=== PATIENT | male | born 1990 | race Caucasian/White ===

== ENCOUNTER 2023-09-29 12:23 | Emergency (ER) | payer OTHER, SELFPAY ==
--- NOTE | ~2023-09-29 | US_ITS ---
US scrotum doppler INDICATION: Testicular pain TECHNIQUE: Testicular sonogram utilizing grayscale and color Doppler FINDINGS: The testes are normal in size and appearance. No focal lesions are seen. The right testes measures 4.5 x 2.2 x 3.1 cm centimeters, and the left testis measures 4.4 x 2 x 2.6 cm cm. There is a small 2 mm complicated cyst at the superior aspect of the left testicle, likely benign. 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 There is normal vascular flow to both testes. The right and left epididymides appear normal. There is a left varicocele. IMPRESSION: 1. Small complicated cyst measuring 2 mm in the left testicle, likely benign. Recommend follow-up ul trasound in 3-6 months to assess stability. 2: Left varicocele. 3: No evidence for testicular torsion. 4: Testicular microlithiasis. Reviewed, dictated and finalized at location B. IMPRESSION: 1. Small complicated cyst measuring 2 mm in the left testicle, likely benign. Recommend follow-up ultrasound in 3-6 months to assess stability. 2: Left varicocele. 3: No evidence for testicular torsion. 4: Testicular microlithiasis.
[2023-09-29 12:25] VITALS: BP 132/85; PULSE 89; RESP 16; TEMP 36.5; O2SAT 100
--- NOTE | 2023-09-29 13:04 | ED.MALEGU ---
HPI - Male Genitourinary General Chief complaint: Urogenital-Male Stated complaint: testicle pain Time Seen by Provider: 09/29/23 13:00 History of Present Illness HPI Narrative: Patient is a 33-year-old male with history of hypertension here today with testicular pain. He states that his right testicle has been intermittently painful for the last 3-4 months. He went and establish with a new primary care doctor on September 24 and they ordered an outpatient ultrasound which is scheduled for this Friday. He notes that this morning the pain seemed to worsen and is now located in bilateral testicles and he feels as though someone kicked him in his scrotum. He notes that the pain radiates to bilateral hips and lower back. He denies any hematuria, dysuria, increased urinary frequency. Change in his pain with urination. The pain is mainly located in his posterior scrotum. He denies any trauma, denies any testicular or genital lesions. Denies any penile discharge. He denies any fever or chills. He notes he is in a monogamous relationship with his fiancee, they typically have unprotected intercourse. He denies concern for STI. No fever or chills. Related Data Home Medications Medication Instructions Recorded Confirmed losartan 100 mg tablet 100 mg PO DAILY 09/25/23 09/25/23 Allergies Allergy/AdvReac Type Severity Reaction Status Date / Time No Known Allergies Allergy Unverified 09/29/23 12:23 Review of Systems Review of Systems: All systems reviewed & are unremarkable except as noted in HPI and below PMFSH Past Medical History Medical History (Updated 09/29/23 @ 16:26 by Fanta Campoverde APRN) Anxiety HTN (hypertension) Kidney stones Family History Family History (Updated 09/25/23 @ 08:59 by Ondina Hogan MA) Father Heart disease Mother Hypertension Social History Social History (Updated 09/25/23 @ 09:01 by Ondina Hogan MA) Smoking status: Never smoker Alcohol intake: never Substance use type: does not use Do You Feel Safe in your Home?: Yes Lack of Transportation: No Lack of Food: Never True Current Housing: I Have Housing Concerned About Future Housing: No Difficulty Paying Gas/Electric Bills: No Difficulty Paying for Meds: No Currently Unemployed: No Education: High School Diploma/GED Difficulty w/ Childcare or Family Care: No Living arrangements: alone Additional occupation/education comments: [employer] Gender identity (if verbalized by the patient): Male Agree to blood products: Yes Exam Narrative: GENERAL: Well-appearing, well-nourished, and in no acute distress. HEAD: Normocephalic, atraumatic. EYES: PERRLA and EOMI. ENT: Nares clear. Mucous membranes moist. NECK: Supple. CHEST: Clear to auscultation. No respiratory distress. HEART: Regular rate and rhythm. Normal peripheral pulses. ABDOMEN: Soft, nontender, nondistended. 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 No overt swelling, masses or skin changes. No penile discharge. No genital lesions appreciated. No tenderness or fullness in the inguinal canal bilaterally. EXTREMITIES: Normal range of motion. No edema. SKIN: Warm, dry, no rash. NEURO: No focal deficits. Alert and oriented x3. PSYCH: Normal mood and affect. Course Course Emergency Course: Chart review performed. Patient here with testicular pain x1 month, scheduled for outpatient US on Friday, work up with worsening pain. One prior visit in our system from 09/25/23. They note history of testicular pain for 3-4 months in their note. History of anxiety, HTN, kidney stones. Patient seen evaluated, nontoxic appearing. Fairly unremarkable exam including a chaperoned testicular exam. Basic labs, STI panels, UA, testicular ultrasound been ordered. Will order tylenol for pain as patient has taken
[2023-09-29 13:45] LABS: Basophils Absolute Auto 0.1 K/mm3 (0.0-0.1); Basophils Percent Auto 0.8 % (0.2-1.2); Eosinophils Absolute Auto 0.1 K/mm3 (0-0.3); Eosinophils Percent Auto 1.5 % (0-4.4); Hematocrit 45.2 % (42.0-52.0); Hemoglobin 15.4 g/dL (14.0-18.0); Immature Granulocyte Absolute 0.16 K/mm3 (0.00-0.031); Immature Granulocyte Percent A 2.1 % (0-0.5); Lymphocytes Absolute Auto 1.54 K/mm3 (0.9-3.2); Lymphocytes Percent Auto 19.8 % (18.3-44.2); Mean Corpuscular HGB Conc 34.1 g/dl (32-36); Mean Corpuscular Hemoglobin 29.7 pg (26-34); Mean Corpuscular Volume 87.3 fl (80-100); Mean Platelet Volume 8.6 fl (7.4-10.4); Monocytes Absolute Auto 0.8 K/mm3 (0.1-0.6); Monocytes Percent Auto 9.6 % (2.6-8.5); Neutrophils Absolute Auto 5.2 K/mm3 (1.3-6.7); Neutrophils Percent Auto 66.2 % (45.5-73.1); Platelet Count Result 393 k/mm3 (150-375); Red Blood Count 5.18 M/mm3 (4.6-6.20); Red Cell Distribution Width 12.6 % (11.5-14.5); White Blood Count 7.8 K/mm3 (4.5-10.0)
[2023-09-29 13:47] LABS: Appearance Urine Clear (Clear); Bilirubin Urine Negative (Negative); Blood Urine Negative (Negative); Color Urine Yellow (Yellow); Glucose Urine UA Negative (Negative); Ketones Urine Negative (Negative); Leukocyte Esterase Ur Negative LEU/UL (Negative); Nitrate Urine Negative (Negative); Protein Urine Negative (Negative); Specific Grav Ur 1.016 (1.001-1.035)
[2023-09-29 13:51] LABS: Add Urine Microscopic? NO
[2023-09-29 13:55] LABS: Alanine Aminotransferase 31 U/L (6-50); Albumin Level 4.5 g/dL (3.5-5.1); Alkaline Phosphatase 97 U/L (38-126); Anion Gap 6 mmol/L (4-12); Aspartate Amino Transferase 26 U/L (17-59); Bilirubin,Total 0.6 mg/dL (0.2-1.3); Blood Urea Nitrogen 9 mg/dL (9-20); Calcium 8.9 mg/dL (8.4-10.2); Carbon Dioxide 28 mmol/L (22-30); Chloride 105 mmol/L (98-107); Estimated CRCL calculation 119 ml/min; Estimated Glomerular Filt Rate > 60; Glucose 114 mg/dL (65-110); Potassium 3.8 mmol/L (3.4-5.0); Sodium 139 mmol/L (137-145)
[2023-09-29] MEDS: ACETAMINOPHEN 325 MG TABLET 650 MG PO (14:42)
[2023-09-29 14:54] LABS: Trichomonas Vag PCR NOT DETECTED (NOT DETECTE)
[2023-09-29 15:16] LABS: Chlamydia trachomatis NOT DETECTED (NOT DETECTE); Neisseria gonorrhoeae PCR NOT DETECTED (NOT DETECTE)
[2023-09-29] MEDS: KETOROLAC 30 MG/ML VIAL (*BKC) 15 MG IM (16:23)
[2023-09-29 16:27] VITALS: BP 130/72; PULSE 74; RESP 16; O2SAT 100
== END 2023-09-29 16:28 | disposition home or self-care (01) ==
PROVIDERS: Emergency Provider Student in an Organized Health Care Education/Training Program; PCP Nurse Practitioner Adult Health
DX: N50.811 Right testicular pain (principal); N50.812 Left testicular pain; I10 Essential (primary) hypertension; Z87.442 Personal history of urinary calculi
CPT/HCPCS: 36415; 76870; 80053; 81003; 85025; 87491; 87591; 87661; 93976; 96372; 99283; 99284; A9270; J1885

== ENCOUNTER 2024-03-31 16:07 | Outpatient (CLI) | payer OTHER, SELFPAY ==
--- NOTE | ~2024-03-31 | XR_ITS ---
CORRECTED REPORT corrected order to XR foot LT standing min 3V JMG 04/01/24 This report was recreated on 04/01/24. Original report was RED ENTRANCE MONITOR Left foot Technique: AP, oblique, and lateral views were obtained. Clinical History: Pain Findings: No acute fracture or dislocation is seen. Osseous alignment is anatomic. Joint spaces are preserved without erosive or degenerative change. Soft tissues are unremarkable. Impression: Unremarkable left foot radiographs. Reviewed, dictated and finalized at location M. RED ENTRANCE MONITOR MTDD Impression: Unremarkable left foot radiographs.
== END 2024-03-31 16:08 | disposition home or self-care (01) ==
LOC: ANHBWCIMG 16:09
PROVIDERS: PCP Nurse Practitioner Adult Health; Visit Provider Nurse Practitioner Adult Health
DX: M79.672 Pain in left foot (principal)
CPT/HCPCS: 73630

== ENCOUNTER 2024-10-08 11:13 | Outpatient (CLI) | payer OTHER, SELFPAY ==
[2024-10-08 11:46] LABS: Basophils Absolute Auto 0.1 K/mm3 (0.0-0.1); Basophils Percent Auto 0.6 % (0.2-1.2); Eosinophils Absolute Auto 0.2 K/mm3 (0-0.3); Eosinophils Percent Auto 1.8 % (0-4.4); Hemoglobin 14.8 g/dL (14.0-18.0); Immature Granulocyte Absolute 0.17 K/mm3 (0.00-0.031); Immature Granulocyte Percent A 2.1 % (0-0.5); Lymphocytes Absolute Auto 1.31 K/mm3 (0.9-3.2); Lymphocytes Percent Auto 15.9 % (18.3-44.2); Mean Corpuscular HGB Conc 32.9 g/dl (32-36); Mean Corpuscular Hemoglobin 28.7 pg (26-34); Mean Corpuscular Volume 87.4 fl (80-100); Mean Platelet Volume 8.6 fl (7.4-10.4); Monocytes Absolute Auto 0.7 K/mm3 (0.1-0.6); Monocytes Percent Auto 8.9 % (2.6-8.5); Neutrophils Absolute Auto 5.8 K/mm3 (1.3-6.7); Neutrophils Percent Auto 70.7 % (45.5-73.1); Platelet Count Result 409 k/mm3 (150-375); Red Blood Count 5.15 M/mm3 (4.6-6.20); Red Cell Distribution Width 12.5 % (11.5-14.5); White Blood Count 8.2 K/mm3 (4.5-10.0)
[2024-10-08 11:56] LABS: Alanine Aminotransferase 27 U/L (6-50); Albumin Level 4.4 g/dL (3.5-5.1); Alkaline Phosphatase 106 U/L (38-126); Anion Gap 11 mmol/L (4-12); Aspartate Amino Transferase 27 U/L (17-59); Bilirubin,Total 0.5 mg/dL (0.2-1.3); Blood Urea Nitrogen 13 mg/dL (9-20); Calcium 9.2 mg/dL (8.4-10.2); Carbon Dioxide 26 mmol/L (22-30); Chloride 102 mmol/L (98-107); Cholesterol 229 mg/dL (0-200); Estimated Glomerular Filt Rate > 60; Glucose 125 mg/dL (65-110); HDL Direct 41 mg/dL; Magnesium 2.1 mg/dL (1.6-2.3); Potassium 4.4 mmol/L (3.4-5.0); Sodium 139 mmol/L (137-145); Triglycerides 139 mg/dL (<150)
[2024-10-08 12:07] LABS: LDL Cholesterol Direct 141 mg/dL
== END 2024-10-08 11:14 | disposition home or self-care (01) ==
LOC: ANHLAB 11:14
PROVIDERS: PCP Nurse Practitioner Adult Health; Visit Provider Nurse Practitioner Adult Health
DX: Z51.81 Encounter for therapeutic drug level monitoring (principal); Z79.899 Other long term (current) drug therapy; I10 Essential (primary) hypertension
CPT/HCPCS: 36415; 80053; 80061; 82607; 83735; 85025

== ENCOUNTER 2024-10-11 09:46 | Outpatient (CLI) | payer OTHER, SELFPAY ==
--- NOTE | 2024-10-11 10:08 | CONSULT_PTH ---
PATIENT: Néstor Elizabeth LOC: [facility] U#:[id number] AGE/SX: 34/M ROOM: RE10/11/[address]: Fanta Campoverde APRN : 1990 BED: DIS: 10/11/2024 SPEC #: [id number] RECD: 10/11/24 21:24 STATUS: NATALY REQ #: [id number] CHAN: 10/11/24 10:[address]: Fanta Campoverde DEPT: [facility] Consult RECD BY: Francis Mohr MLT, ([facility]) Procedures: Hematology Consult
[2024-10-11 20:05] LABS: Basophils Absolute Auto 0.1 K/mm3 (0.0-0.1); Basophils Percent Auto 0.5 % (0.2-1.2); Eosinophils Absolute Auto 0.1 K/mm3 (0-0.3); Eosinophils Percent Auto 1.3 % (0-4.4); Hematocrit 47.4 % (42.0-52.0); Hemoglobin 14.9 g/dL (14.0-18.0); Immature Granulocyte Absolute 0.32 K/mm3 (0.00-0.031); Immature Granulocyte Percent A 3.5 % (0-0.5); Lymphocytes Absolute Auto 1.65 K/mm3 (0.9-3.2); Lymphocytes Percent Auto 17.8 % (18.3-44.2); Mean Corpuscular HGB Conc 31.4 g/dl (32-36); Mean Corpuscular Hemoglobin 28.4 pg (26-34); Mean Corpuscular Volume 90.5 fl (80-100); Mean Platelet Volume 8.9 fl (7.4-10.4); Monocytes Absolute Auto 0.7 K/mm3 (0.1-0.6); Neutrophils Absolute Auto 6.4 K/mm3 (1.3-6.7); Neutrophils Percent Auto 68.9 % (45.5-73.1); Platelet Count Result 464 k/mm3 (150-375); Red Blood Count 5.24 M/mm3 (4.6-6.20); White Blood Count 9.3 K/mm3 (4.5-10.0)
== END 2024-10-11 09:47 | disposition home or self-care (01) ==
LOC: ANHBWCLAB 09:47
PROVIDERS: PCP Nurse Practitioner Adult Health; Visit Provider Nurse Practitioner Adult Health
DX: R79.89 Other specified abnormal findings of blood chemistry (principal)
CPT/HCPCS: 36415; 85025

== ENCOUNTER 2024-10-26 08:29 | Outpatient (CLI) | payer OTHER, SELFPAY ==
--- OUTSIDE RECORDS SUMMARY | 2024-10-26 08:34 | XMS_ITS | Clinical Summary ---
Author Organization [facility] [address] Address [address] [place] [address] Phone Care Team Providers Care Medical Staff Director Name Role Phone Miscellaneous, Not In File Primary Care Provider Unavailable Allergies No known active allergies Medications escitalopram (LEXAPRO) 20 mg tablet Take 1 tablet (20 mg total) by mouth daily 07/30/2022 Active losartan (COZAAR) 100 mg tablet TAKE 1 TABLET(100 MG) BY MOUTH DAILY 30 tablet 11 05/22/2023 Active cyclobenzaprine (FLEXERIL) 10 mg tablet Take 1 tablet (10 mg total) by mouth nightly 10 tablet 05/03/2024 Active ibuprofen (ADVIL,MOTRIN) 600 mg tablet Take 1 tablet (600 mg total) by mouth every 6 (six) hours as needed for pain 20 tablet 05/03/2024 Active Active Problems Problem Noted Date Diagnosed Date Skin lesion 06/21/2022 Assessment & Plan (06/21/2022 9:59 AM SAND CASTER APPRENTICE): Referred to Plastic surgery for excision. Anxiety disorder 06/18/2021 Overview (06/24/2023): Psychiatrist Dr Burgos, [facility] Dem[facility] Assessment & Plan (06/24/2023 9:00 AM SAND CASTER APPRENTICE): Well controlled on escitalopram 20 mg daily and should follow up with his psychiatrist as they direct. Assessment & Plan (06/18/2021 9:12 AM SAND CASTER APPRENTICE): Well controlled on generic Lexapro. IFG (impaired fasting glucose) 07/13/2020 Assessment & Plan (06/24/2023 9:00 AM SAND CASTER APPRENTICE): Check fasting blood sugar this morning and call back for results. Diet exercise discussed. Assessment & Plan (06/21/2022 9:58 AM SAND CASTER APPRENTICE): Check fasting blood sugar next week and call back for results. Assessment & Plan (06/18/2021 9:11 AM SAND CASTER APPRENTICE): Check labs this week and call back for results. Assessment & Plan (08/17/2020 8:44 AM CDT): Patient should reduce sugar and carbs, increase exercise, maintain proper body weight, and will check an A1c once or twice yearly. Assessment & Plan (07/13/2020 8:54 AM CDT): Patient should reduce sugar and carbs, increase exercise, maintain proper body weight, and will check an A1c once or twice yearly. Healthcare maintenance 06/15/2020 Assessment & Plan (06/24/2023 8:59 AM SAND CASTER APPRENTICE): Shot each January and COVID booster recommended. Tetanus booster due 2030. Diet exercise discussed. Will see him back in 1 year with labs sooner if needed. He will also have fasting labs done today and call back for results. Assessment & Plan (06/21/2022 9:59 AM SAND CASTER APPRENTICE): Flu shot each January. COVID booster discussed. Tetanus booster every 10 years. Diet exercise discussed. Check fasting labs next week and call back for results. Will see him back in 1 year sooner if needed. Assessment & Plan (06/18/2021 9:11 AM SAND CASTER APPRENTICE): Check fasting labs this week and call back for results. Flu shot each January. Recommended COVID booster shot in September. Tetanus booster every 10 years. Diet exercise discussed. Will see him back in 1 year for physical sooner if needed. Assessment & Plan (06/15/2020 9:02 AM SAND CASTER APPRENTICE): Tetanus booster today. Flu shot recommended but declined and is aware the risks this poses to his health. COVID vaccine recommended when available. Check fasting labs before next visit. Will see him back in 1 month sooner if needed. Essential hypertension 07/21/2015 Overview (06/15/2020): Lisinopril 10mg daily produced side effects but tolerated 5mg twice daily. Assessment & Plan (06/24/2023 8:59 AM SAND CASTER APPRENTICE): Blood pressure well controlled on losartan 100 mg daily. Assessment & Plan (06/21/2022 9:58 AM SAND CASTER APPRENTICE): Blood pressure well controlled on losartan. Assessment & Plan (06/18/2021 9:10 AM SAND CASTER APPRENTICE): Well controlled on the current regimen. Avoidance of salt, proper body weight, and routine exercise recommended. Assessment & Plan (08/17/2020 8:44 AM CDT): Continue losartan 50 mg daily for now. Try to avoid salt and increase exercise. Continue monitoring blood pressures and give me an update in 30 days and will plan on increasing his losartan to 100 mg at that time if his diastolic numbers do not improve. Assessment & Plan (07/13/2020 8:54 AM CDT): Start losartan 50 mg half tablet daily for 6 days then full tablet daily thereafter. Warned of possible side effects and call back if any develop. Check metabolic panel in 2 weeks and see him back in the office in 4 weeks for repeat evaluation. Continue checking blood pressure at home. Assessment & Plan (06/15/2020 9:01 AM SAND CASTER APPRENTICE): Check blood pressure at home record and bring to next visit. Start medication if indicated. Avoid salt and caffeinated products. Increase exercise. Assessment & Plan (07/03/2017 2:43 PM CDT): Home blood pressures are generally about 120/80. He checks them several times a week. Blood pressure in the office is somewhat borderline but with the home blood pressures where they are I think we can continue current therapy without change. Follow-up annually. Assessment & Plan (04/04/2017 4:11 PM SAND CASTER APPRENTICE): Blood pressures remain somewhat elevated, at least diastolic. Systolic is in a much better range. The patient's home blood pressures confirm the readings in the office. His pulse rate is a bit high. We will add a beta-monique and hopefully this will slow the heart down in lower the blood pressure a bit more. As before, the Korotkoff sounds are difficult to hear. I am confident of the systolic blood pressure but diastolic is very muffled and difficult to determine precisely. However I think with a lower heart rate, we may be achieve our goal, hence the beta-monique. Assessment & Plan (03/21/2017 5:06 PM SAND CASTER APPRENTICE): Blood pressures were pretty well controlled for awhile. He was checking with his home wrist cuff, but then he was getting an error message so he had a friend who is a nurse check with her cuff. The blood pressures were mildly elevated so he decided to come get it checked out. He was also concerned about some headaches he has been having which started about two weeks ago. Ten days ago, he had a recurrence of intermittent benign positional vertigo as well. He started taking [id number] meclizine which seems to be helping. However blood pressure and headaches persist. On exam, Korotkoff sounds are very difficult to hear, but there does appear to be mild or even moderate elevation of systolic and diastolic blood pressure. At home it has been primarily diastolic that is elevated, usually around 100 mm Hg. He denies chest pain and there is no swelling in his legs or other worrisome sign or symptom. Review of records shows that he had a CT of his kidneys in 2013 that showed symmetrical kidneys. He does have a history of kidney stones. There has been no recurrence of kidney stones symptoms. It looks like there is no renal artery Doppler. I also asked him about sleep apnea symptoms any has no history of snoring or daytime sleepiness or fatigue. He does get a little tired around noontime every day, but figures that is because he is up at 4:00 a.m. to work his shift at the [employer]. He gets off at 1:30 p.m. He does not otherwise have daytime fatigue or sleepiness. All of this is relevant because hypertension in a young person can sometimes be associated with obstructive sleep apnea. He has never had a sleep study. For now we will focus on treating the high blood pressure by increasing the lisinopril to 5 mg twice a day. We are splitting the dose rather than giving 10 mg once a day, because he had nausea with the higher dose taken once a day. With the reduced dose, blood pressure was controlled and he had no GI side effects. However with the elevation in blood pressure, we will increase the dose back to 10 mg but divided it morning in the evening. We will see him back in about two weeks to see how he is doing. History of kidney stones 09/19/2014 Assessment & Plan (06/15/2020 9:01 AM SAND CASTER APPRENTICE): Drink plenty of water and avoid caffeinated beverages salt and animal products. Check calcium level again before next visit. Tobacco dependence syndrome 09/19/2005 Overview (07/26/2016): Tobacco abuse Assessment & Plan (07/03/2017 2:44 PM CDT): He is still smoking. I encouraged him again to quit. Assessment & Plan (04/04/2017 4:09 PM SAND CASTER APPRENTICE): He is still smoking. He should try to quit. This would probably improve his blood pressure and his overall health status. Resolved Problems Problem Noted Date Diagnosed Date Resolved Date Benign paroxysmal positional vertigo due to bilateral vestibular disorder 03/10/2017 07/03/2017 Other headache syndrome 03/07/201706/19 Assessment & Plan (03/21/2017 5:09 PM SAND CASTER APPRENTICE): About the same time that his blood pressure was noted to be high, he started to experience headaches. He has had headaches off and on in the past. These are more persistent and rated from as low as 2/10 to as high as about 6/10 in severity. They are a sharp frontal pain. He has not been running a fever. Examination including funduscopic evaluation of optic discs is unremarkable. He has not had any response to ibuprofen taken [id number]. We will give him some tramadol to use over the next 1-2 weeks on an as needed basis. Hopefully controlling the headache pain will also improve his blood pressure. We will see him back for both issues within about two weeks. As with the elevated blood pressure, headaches might relate to obstructive sleep apnea (hypnic headache). Vertigo 05/20/2015 03/21/2017 Overview (07/26/2016): Vertigo Calculus of kidney 09/19/2014 9 Overview (07/26/2016): Kidney stone Assessment & Plan (07/03/2017 2:43 PM CDT): Since his last appointment, he passed another kidney stone. He did not have to go to the hospital. Continue to monitor. Acute streptococcal pharyngitis 05/24/2014 10/17/2016 Overview (07/26/2016): Streptococcal sore throat Immunizations Immunization Administration Dates Next Due DTP 09/07/1992, 0,1988,10/03,1988 Hep B, Adolescent or Pediatric 07/11/1998,1997,01/03/1998 HiB 10/30/1989 Influenza, Quadrivalent, Spl it, Preservative Free, Intramuscular 01/07/2018 Influenza, Unspecified 06/24/2023(Deferr ed: Patient Refused),06/21/2022(Deferred: Patient Refused),11/19/2021(Deferred: Patient Refused),06/18/2021(Deferred: Patient Refused),07/13/2020(Deferred: Patient Refused),06/15/2020(Deferred: Patient Refused) MMR 09/07/1992,10/30/1989 OPV 09/07/1992, 0,1988,10/03,1988 Td, adsorbed 06/15/2020,07/29/2002 Surgical History Surgery Date Site/Laterality Comments APPENDECTOMY Appendectomy Medical History Medical History Date Comments Vertigo 05/20/2015 Vertigo Benign paroxysmal positional vertigo due to bilateral vestibular disorder 03/10/2017 Other headache syndrome 03/07/2017 Calculus of kidney 09/19/2014 Kidney stone Hypertension Family History Medical History Relation Name Comments Nephrolithiasis Brother Coronary artery disease Maternal Grandmother shortly after CABG Hypertension Maternal Grandmother Hypertension Mother Hypertension; Nephrolithiasis Mother Kidney stone s; Seizures Mother Seizure disorde r; Relation Name Status Comments Brother Maternal Grandmother Mother Social History Tobacco Use Types Packs/Day Years Used Date Smoking Tobacco: Former Cigarettes 0.3 7 0 06/15/2011 - 06/15/2018 Smokeless Tobacco: Never Tobacco Cessation:Counseling Given: Not Answered Comments:Smoking History Packs/day: 2 Cigarettes Alcohol Use Standard Drinks/Week Comments No 0 (1 standard drink = 0.6 oz pur e alcohol) AUDIT-C Answer Date Recorded Q1: How often do you have a drink containing alcohol? Never 06/24/2023 Q2: How many drinks containi ng alcohol do you have on a typical day when you are drinking? Patient does not drink Q3: How often do you have si x or more drinks on one occasion? Never 06/24/2023 PHQ-2 Answer Date Recorded PHQ-2 Total Score (If total score is 3 or more points, staff should administer the PHQ-9) 0 06/24/2023 Personal Safety Answer Date Recorded Have you ever been in or are you currently in a harmful physical or emotional relationship or is someone making you feel afraid or unsafe? Denies 05/03/2024 Sex and Gender Information Value Date Recorded Sex Assigned at Not on file Legal Sex Male 3:33 AM SAND CASTER APPRENTICE Gender Identity Not on file Sexual Orientation Not on file Obstetrics History Last Filed Vital Signs Vital Sign Reading Time Taken Comments Blood Pressure 124/88 05/03/2024 12:42 PM SAND CASTER APPRENTICE Pulse 89 05/03/2024 12:42 PM SAND CASTER APPRENTICE Temperature 36.3 C (97.3 F) 05/03/2024 10:15 AM SAND CASTER APPRENTICE Respiratory Rate 16 05/03/2024 12:42 PM SAND CASTER APPRENTICE Oxygen Saturation 95% 05/03/2024 12:42 PM SAND CASTER APPRENTICE Inhaled Oxygen Concentration - - Weight 77.1 kg (170 lb) 05/03/2024 10:17 AM SAND CASTER APPRENTICE Height 169.5 cm (5' 6.73) 06/24/2023 8:18 AM CS T Body Mass Index 26.84 06/24/2023 8:18 AM SAND CASTER APPRENTICE Plan of Treatment Health Maintenance Due Date Last Done Comments Hepatitis C Screening 1990 Varicella Vaccines (1 of 2 - 13+ 2-dose series) 2001 Covid-19 Vaccine ( season) 2023 09/24/2020, 09/03/2020 Depression Screening 06/23/2024 06/24/2023, 06/21/2022, 06/18/2021, Additional history exists Regular Well Visit/Exam 18-64 06/23/2024 06/24/2023, 06/21/2022, 06/18/2021, Additional history exists Influenza Vaccine (#1) 2024 01/07/2018 DTaP/Tdap/Td Vaccine (6 - Tdap) 06/15/2030 06/15/2020, 07/29/2002, 09/07/1992, Additional history exists Postponed from 06/16/2020 (Provider's clinical decision) Hepatitis B Screening Completed 07/11/1998 , 02/07/1998, 01/03/1998 HPV Vaccines Aged Out No longer eligi ble based on patient's age to complete this topic Pneumococcal vaccine <65 Aged Out No longer eligible based on patient's age to complete this topic Insurance [employer] [facility] [employer]ENSATION GENERIC Care Teams Medical Staff Director Relationship Specialty Start Date End Date Miscellaneous, Not In File PCP - General 05/03/24
--- OUTSIDE RECORDS SUMMARY | 2024-10-26 08:34 | XMS_ITS | Clinical Summary ---
Author Organization [facility] Address [address] [place] [address] Phone Care Team Providers Care Blanket Maker Name Role Phone Provider, Unknown Primary Care Provider Unavaila ble Allergies No known active allergies Medications LISINOPRIL PO Take 0.5 mg by mouth 2 times daily. Active escitalopram (LEXAPRO) 20 MG Tablet Take 20 mg by mouth daily. Active losartan (COZAAR) 100 MG Tablet Take by mouth. 4 Active omeprazole (PriLOSEC) 40 MG CAPSULE DELAYED RELEASE Take 40 mg by mouth daily. 4 Active ondansetron (ZOFRAN-ODT) 4 MG TABLET DISPERSIBLEIndicatio ns:Viral gastroenteritis Take 1 Tablet by mouth every 8 hours as needed for Nausea - 1st line. 10 Tablet 4 Active Active Problems No known active problems Immunizations Immunization Administration Dates Next Due DTP Vaccine 09/07/1992, 0,1988,1988,1988 Hepatitis B Vaccine, Pediatric/adolescent 07/11/1998,02/07/1998,01/03/1998 Hib Vaccine,unspecified Formulation 10/30/1989 Influenza Vaccine, Quadrivalent, PF 01/07/2018 MMR Vaccine 09/07/1992,10/30/1989 OPV 09/07/1992, 0,1988,1988,1988 TD VACCINE 06/15/2020,07/29/2002 Social History Tobacco Use Types Packs/Day Years Used Date Smoking Tobacco: Never Smokeless Tobacco: Never Tobacco Cessation:Counseling Given: Not Answered Sex and Gender Information Value Date Recorded Sex Assigned at Not on file Legal Sex Male 11:19 PM CDT Gender Identity Not on file Sexual Orientation Not on file Last Filed Vital Signs Vital Sign Reading Time Taken Comments Blood Pressure 112/74 03/01/2024 8:23 AM CROSSING SUPERVISOR Pulse 101 03/01/2024 8:23 AM CROSSING SUPERVISOR Temperature 37.2 C (98.9 F) 03/01/2024 8:23 AM CROSSING SUPERVISOR Respiratory Rate 14 03/01/2024 8:23 AM CROSSING SUPERVISOR Oxygen Saturation 97% 03/01/2024 8:23 AM CROSSING SUPERVISOR Inhaled Oxygen Concentration - - Weight - - Height - - Body Mass Index - - Plan of Treatment Health Maintenance Due Date Last Done Comments Hepatitis C Virus (HCV) Screening 1990 Human Papillomavirus (HPV) Immunization (1 - Male 3-dose series) 2003 DTaP/Tdap/Td Immunization (6 - Tdap) 06/16/2020 06/15/2020, 07/29/2002, 09/07/1992, Additional history exists SARS-COV-2 Immunization ( season) 2023 09/24/2020, 09/03/2020 Influenza Immunization (#1) 2024 01/07/2018 Respiratory Syncytial Virus (RSV) Immunization (Adult) (1 - 1-dose 75+ series) 2063 Hepatitis B Immunization Completed 999, 02/07/1998, 01/03/1998 Meningococcal Immunization (ACWY) Aged Out No longer eligible based on patient's age to complete this topic Pneumococcal Immunization Combined Aged Out No longer eligible based on patient's age to complete this topic Rotavirus Immunization Aged Out No lo nger eligible based on patient's age to complete this topic Care Teams Blanket Maker Relationship Specialty Start Date End Date Provider, Unknown UNKNOWN PCP - General 12/23/19
--- OUTSIDE RECORDS SUMMARY | 2024-10-26 08:34 | XMS_ITS | Referral Summary ---
Author Organization [facility] [address] Address [address] [place] [address] Phone Care Team Providers Care Aerospace Manager Name Role Phone Miscellaneous, Not In File [...] 06/21/2022 Assessment & Plan (06/21/2022 9:59 AM STRUCTURAL STEEL DETAILER): Referred to Plastic surgery for excision. Anxiety disorder 06/18/2021 Overview (06/24/2023): Psychiatrist Dr Burgos, Doctor on Demand Assessment & Plan (06/24/2023 9:00 AM STRUCTURAL STEEL DETAILER): Well controlled on escitalopram 20 mg daily and should follow up with his psychiatrist as they direct. Assessment & Plan (06/18/2021 9:12 AM STRUCTURAL STEEL DETAILER): Well controlled on generic Lexapro. IFG (impaired fasting glucose) 07/13/2020 Assessment & Plan (06/24/2023 9:00 AM STRUCTURAL STEEL DETAILER): Check fasting blood sugar this morning and call back for results. Diet exercise discussed. Assessment & Plan (06/21/2022 9:58 AM STRUCTURAL STEEL DETAILER): Check fasting blood sugar next week and call back for results. Assessment & Plan (06/18/2021 9:11 AM STRUCTURAL STEEL DETAILER): Check labs this week and call back [...] 06/15/2020 Assessment & Plan (06/24/2023 8:59 AM STRUCTURAL STEEL DETAILER): Shot each January and COVID booster recommended. Tetanus booster due 2030. Diet exercise discussed. Will see him back in 1 year with labs sooner if needed. He will also have fasting labs done today and call back for results. Assessment & Plan (06/21/2022 9:59 AM STRUCTURAL STEEL DETAILER): Flu shot each January. COVID booster discussed. Tetanus booster every 10 years. Diet exercise discussed. Check fasting labs next week and call back for results. Will see him back in 1 year sooner if needed. Assessment & Plan (06/18/2021 9:11 AM STRUCTURAL STEEL DETAILER): Check fasting labs this week and call back for results. Flu shot each January. Recommended COVID booster shot in September. Tetanus booster every 10 years. Diet exercise discussed. Will see him back in 1 year for physical sooner if needed. Assessment & Plan (06/15/2020 9:02 AM STRUCTURAL STEEL DETAILER): Tetanus booster today. Flu shot recommended but declined and is aware the risks this poses to his health. COVID vaccine recommended when available. Check fasting labs before next visit. Will see him back in 1 month sooner if needed. Essential hypertension 07/21/2015 Overview (06/15/2020): Lisinopril 10mg daily produced side effects but tolerated 5mg twice daily. Assessment & Plan (06/24/2023 8:59 AM STRUCTURAL STEEL DETAILER): Blood pressure well controlled on losartan 100 mg daily. Assessment & Plan (06/21/2022 9:58 AM STRUCTURAL STEEL DETAILER): Blood pressure well controlled on losartan. Assessment & Plan (06/18/2021 9:10 AM STRUCTURAL STEEL DETAILER): Well controlled on the current regimen. Avoidance [...] home. Assessment & Plan (06/15/2020 9:01 AM STRUCTURAL STEEL DETAILER): Check blood pressure at home record and [...] annually. Assessment & Plan (04/04/2017 4:11 PM STRUCTURAL STEEL DETAILER): Blood pressures remain somewhat elevated, at least [...] beta-monique. Assessment & Plan (03/21/2017 5:06 PM STRUCTURAL STEEL DETAILER): Blood pressures were pretty well controlled for [...] positional vertigo as well. He started taking [id number] meclizine which seems to be helping. However [...] a.m. to work his shift at the [employer]. He gets off at 1:30 p.m. He [...] 09/19/2014 Assessment & Plan (06/15/2020 9:01 AM STRUCTURAL STEEL DETAILER): Drink plenty of water and avoid caffeinated beverages salt and animal products. Check calcium level again before next visit. Tobacco dependence syndrome 09/19/2005 Overview (07/26/2016): Tobacco abuse Assessment & Plan (07/03/2017 2:44 PM CDT): He is still smoking. I encouraged him again to quit. Assessment & Plan (04/04/2017 4:09 PM STRUCTURAL STEEL DETAILER): He is still smoking. He should try to quit. This would probably improve his blood pressure and his overall health status. Resolved Problems Problem Noted Date Diagnosed Date Resolved Date Benign paroxysmal positional vertigo due to bilateral vestibular disorder 03/10/2017 07/03/2017 Other headache syndrome 03/07/201706/19 Assessment & Plan (03/21/2017 5:09 PM STRUCTURAL STEEL DETAILER): About the same time that his blood [...] not had any response to ibuprofen taken [id number]. We will give him some tramadol to [...] 09/07/1992,10/30/1989 OPV 09/07/1992, 0,1988,10/03,1988 Td, adsorbed 06/15/2020,07/29/2002 Social History Tobacco Use Types Packs/Day [...] on file Legal Sex Male 3:33 AM STRUCTURAL STEEL DETAILER Gender Identity Not on file Sexual Orientation Not on file Last Filed Vital Signs Vital Sign Reading Time Taken Comments Blood Pressure 124/88 05/03/2024 12:42 PM STRUCTURAL STEEL DETAILER Pulse 89 05/03/2024 12:42 PM STRUCTURAL STEEL DETAILER Temperature 36.3 C (97.3 F) 05/03/2024 10:15 AM STRUCTURAL STEEL DETAILER Respiratory Rate 16 05/03/2024 12:42 PM STRUCTURAL STEEL DETAILER Oxygen Saturation 95% 05/03/2024 12:42 PM STRUCTURAL STEEL DETAILER Inhaled Oxygen Concentration - - Weight 77.1 kg (170 lb) 05/03/2024 10:17 AM STRUCTURAL STEEL DETAILER Height 169.5 cm (5' 6.73) 06/24/2023 8:18 AM CS T Body Mass Index 26.84 06/24/2023 8:18 AM STRUCTURAL STEEL DETAILER Plan of Treatment Not on file Insurance [place] [employer] ACCESS [place] [employer] ACCESS OOS R [facility]/PPO Address: [address] [address] WORK[employer] COMPENSATION GENERIC Care Teams Aerospace Manager Relationship Specialty Start Date End Date Miscellaneous, Not In File PCP - General 05/03/24
--- OUTSIDE RECORDS SUMMARY | 2024-10-26 08:34 | XMS_ITS | Continuity of Care Document ---
Author Organization [facility] Address [address] [place] [address] Phone Care Team Providers Care Ross Lift Operator Name Role Phone Saloni Salazar PA-C Unavailable Unavailable Allergies, Adverse Reactions, Alerts Substance Reaction Status Criticality No Known Allergies Active No Inform ation Medications Medication Instructions Dosage Effective Dates (start - stop) Status Comments diclofenac sodium 50 mg tablet,delayed release take 1 tablet by oral route 2 times every day 50 MG - Active Procedures Procedure Date URINALYSIS NONAUTO W/O SCOPE OFFICE/OUTPATIENT VISIT, EST Advance Directives Directive Yes / No Effective Date File Name No Information Encounters Encounter Description Practice Location Reason(s) For Visit Diagnoses Date Provider Providers Copied on Encounter [facility], [address] [place] [address], [facility], [phone] [place] No Information Marie Guallpa. [address] [place] [address], [facility], . [phone] OFFICE/OUTPA TIENT VISIT, [facility], [address] [place] [address], tel:[phone] [place] PAIN IN LT SIDE (chief complaint) Urinary frequencyBack pain Sep-0 4201 4 No Information Family History Family Member Type Diagnosis Age At Onset Mother Problem (finding) renal stone Payers Payer name Insurance type Covered libertarian ID Authoriza tion(s) Blue Cross Blue [facility] CI [id number] Social History Type Description Quantity Date Captured Comments Alcohol Use Details Unknown Caffeine Use Details Unknown Tobacco Use Status Smoking Status No Information Sex Male Chief Complaint And Reason For Visit No Information Reason For Referral Reason For Referral No Information Plan Of Treatment Date Type Action Status Referral Ordered: referred to Urology for consultation Today (related to Back pain) ordered Referral Ordered: referred to Nephrology for consultation Today (related to Back pain) ordered Referral Ordered: CT ABDOMEN W/O DYE ordered History Of Present Illness Encounter Date Complaint History Of Prese nt Illness PAIN IN LT SIDE The symptoms beg an 3 weeks ago. The symptoms are reported as being moderate. The symptoms occur constantly. The location is left side/flank. He states the symptoms are acute and have worsened. States has had the pain in the left side/flank for the last 2 1/2 to 3 weeks, states it would come and go, states now pain is persistant and the worst in the mornings, states the pain caused him to have emesis this morning, states its appearance was like yellowish water. States bowels have been normal until today, states has had loose stools 4 times today. Rates pain 10/10 this morning, and states its 4/10 now. States its like someone taking their fist and jabbing it in his back. States his urine in dark in color, sometimes it orellana and he is going more frequently. Functional Status Date Functional Assessmen t No Information Instructions Date Instruction Additional Infor mation left back pain radia tion to to groin. ct abdomen/pelvis showed multiple kidney stone. renal cyst as well. Will refer pt to urology and nephrology for further mangement. Advised pt to continue taking water and pain medications. Related to Back pain Assessments Type Assessment Date No Information Patient Care Teams Name Effective Dates (start - stop) Status Members No Information
[2024-11-02 11:19] VITALS: BMI 29.0
--- NOTE | 2024-11-02 11:19 | P.SLEEP_ITS ---
Sleep Study - Home Unattended Date of Study: 10/26/24 Ordering Provider: Fanta Campoverde APRN Interpreting Provider: Michelle Miner DO Home Sleep Study Type: Watch PAT Height: 1.7 m Weight: 83.915 kg Body Mass Index: 29.0 Neck Circumference (inches): 17 [place]: 7 Reason for Sleep Study snoring, daytime hypersomnia Sleep History The patient is a 34-year-old male who had a sleep study ordered by his primary care for evaluation of sleep apnea. He admits to snoring loudly, excessive daytime sleepiness, and trouble falling and staying asleep. He denies interruptions in breathing while asleep. He denies choking or gasping at night. He denies having trouble breathing on his back. He does have morning headaches and a dry or sore mouth/throat in the morning. He does have nocturnal heartburn. He urinates twice throughout the night. He does have difficulty returning to sleep if he wakes up throughout the night. He does use hypnotics or sedatives. He does feel anxious about sleep. He does feel tired or sleepy during the day and tired in the morning. He denies having the urge to fall asleep during the day. He denies feeling drowsy while driving. He denies sleep paralysis, cataplexy, and hypnagogic/hypnopompic hallucinations. He denies clenching or grinding his teeth. He denies kicking or jerking his legs excessively. He does have a restless feeling in his legs that causes an urge to move his legs. The restless feeling does not get worse with rest, but it does get better with activity. It only occurs in the evening or at nighttime and does not cause a disturbance in sleep. He goes to bed at 9 p.m. on workdays and at 11 p.m. on his days off. It takes him 1 hour to fall asleep on his workdays and 2 hours on his days off. He gets 9 hours of sleep on workdays and 8 hours on his days off. His sleep is a little more restorative on his days off. He denies taking any planned naps. He denies dream enactment behavior. He denies sleepwalking. He consumes 1 to 2 cups of a caffeinated beverage per day. He denies alcohol and tobacco use. He denies exercising on a weekly basis. [facility] Past Medical History Medical History Kidney stones HTN (hypertension) Anxiety Family History Family History Father Heart disease Mother Hypertension Social History Social History Smoking status: Never smoker Alcohol intake: never Substance use type: does not use Do You Feel Safe in your Home?: Yes Lack of Transportation: No Lack of Food: Never True Current Housing: I Have Housing Concerned About Future Housing: No Difficulty Paying Gas/Electric Bills: No Difficulty Paying for Meds: No Currently Unemployed: No Education: High School Diploma/GED Difficulty w/ Childcare or Family Care: No Living arrangements: alone 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 [employer] Gender identity (if verbalized by the patient): Male Agree to blood products: Yes Medications Home Medications ?Medication ?Instructions ?Recorded ?Confirmed ?Type losartan 100 mg tablet 100 mg PO DAILY #90 tabs 04/27/24 10/05/24 Rx escitalopram oxalate 20 mg tablet See Rx Instructions .Route 09/28/24 10/05/24 Rx .COMPLEX #90 tabs omeprazole 40 mg capsule,delayed See Rx Instructions .Route 10/26/24 Rx release .COMPLEX #90 caps Sleep Procedure The sleep study was completed using [employer]ez[employer]ger a technically adequate device with seven channels: peripheral arterial tone, actigraphy, body position, snore, respiratory movement, pulse oximetry, sleep staging, and heart rate. Prior to using the device, the patient received verbal and written instructions for its application and was provided with the help desk phone number for additional telephonic instruction with 24-hour availability of qualified personnel to answer questions. The study was scored using CMS guidelines. Sleep Architecture The total recording time is 8 hrs, 56 min. The total sleep time is 7 hrs, 14 min. Sleep latency is 17 minutes. REM latency is 234 minutes. The patient had 29 episodes of waking. Sleep architecture shows 10.4% deep sleep, 67.6% light sleep, and (as % Total Sleep Time) showed NREM (Light 67.6%; Deep 10.4%), and a 22.0% stage REM. The patient spent 81.3% of total sleep time in the supine position. Sleep efficiency was 80.97. Respiratory Analysis The overall AHI (pAHI 4%:) is 46.1. The overall AHI (pAHI 3%:) is 65.9. The central AHI is 0.0. The AHI was 66.7 in NREM and 63.3 in REM sleep. The AHI was 71.1 in Supine and 43.2 in Non-supine sleep. Percent of Teto [place] respirations is 0.0. Oximetry Data The oxygen desaturation index (SHAHEED 4%:) is 46.1. The mean saturation is 93%, and the lowest saturation is 73%. Time spent with saturation < 88% is 25.1 minutes. Snoring Profile Snoring average intensity is 48 dB. The patient snored above 45 decibels for 226.4 minutes, 52.1% of sleep time. Cardiac Profile The average pulse rate is 86 beats per minutes. The lowest pulse rate is 50 bpm. The highest pulse rate reported is 125 bpm. Atrial fibrillation was not detected. Premature beats occur 0.2 per minute. Assessment and Plan Assessment and Plan (1) LUIS (obstructive sleep apnea): Code(s): G47.33 - Obstructive sleep apnea (adult) (pediatric) Status: Acute Assessment and Plan: The patient had an overall AHI 46.1 with desaturation down to 73%. This is consistent with severe sleep apnea. The patient spent 25.1 minutes with an oxygen saturation below 88%. Due to the severity of the patient's sleep apnea as well as the length of time he was hypoxemic, he is not an ideal candidate for AutoPAP. I recommend that the patient have a CPAP titration study with the use of a hypnotic to ensure we obtained enough sleep data and find an optimal pressure setting. Data The data obtained during this sleep study is adequate for interpretation. Certification This sleep study has been reviewed by a board certified sleep medicine physic
== END 2024-10-27 09:09 | disposition home or self-care (01) ==
LOC: ANHCSM 08:30
PROVIDERS: PCP Nurse Practitioner Adult Health; Visit Provider Nurse Practitioner Adult Health
DX: G47.33 Obstructive sleep apnea (adult) (pediatric) (principal); G47.10 Hypersomnia, unspecified; R06.83 Snoring
CPT/HCPCS: 95800

== ENCOUNTER 2025-02-03 13:56 | Outpatient (CLI) | payer OTHER, SELFPAY ==
--- OUTSIDE RECORDS SUMMARY | 2025-02-03 13:30 | XMS_ITS | Encounter Summary ---
Author Organization [facility] DEMETRA Murray [facility] Address [address] [place] [address] Care Team Providers Care Area Intelligence Technician Name Role Phone Unavailable Primary Care Provider Unavailabl e Reason for Visit * Reason Comments Establish Care Encounter Details Date Type Department Care Team ([facility] st Contact Info) Description 02/03/2025 1:30 PM CDT Office Visit [facility] Oncology and Hematology - [place] [address] [facility] [address] [place] [address] Puneet Martinez MD [address] [facility] [address] [place] [address] Reactive thrombocytosis (Primary Dx) Social History Tobacco Use Types Packs/Day Years Used Date Smoking Tobacco: Former Cigarettes 0.5 10 Q uit: 02/03/2022 Smokeless Tobacco: Never Tobacco Cessation:Counseling Given: Not Answered Alcohol Use Standard Drinks/Week Comments Not Currently 0 (1 standard drink = 0.6 oz pur e alcohol) Sex and Gender Information Value Date Recorded Sex Assigned at Not on file Legal Sex Male 9:48 AM CDT Gender Identity Not on file Sexual Orientation Not on file documented as of this encounter Last Filed Vital Signs Vital Sign Reading Time Taken Comments Blood Pressure 124/89 02/03/2025 1:29 PM CDT Pulse 77 02/03/2025 1:29 PM CDT Temperature 36.3 C (97.3 F) 02/03/2025 1:29 PM CDT Respiratory Rate 15 02/03/2025 1:29 PM CDT Oxygen Saturation 97% 02/03/2025 1:29 PM CDT Inhaled Oxygen Concentration - - Weight 83.9 kg (185 lb) 02/03/2025 1:29 PM CDT Height 170.2 cm (5' 7) 02/03/2025 1:29 PM CDT Body Mass Index 28.98 02/03/2025 1:29 PM CDT documented in this encounter Progress Notes * Puneet Martinez MD - 02/03/2025 1:37 PM CDT 6Hematology-oncology consult Note Requesting Physician Primary Care Physician No primary care provider on file. Problem list There is no problem list on file for this patient. Previous TREATMENT ? Measurable Disease ? Reason for Visit Néstor Elizabeth is a 34 y.o. male who was referred for consultation for thrombocytosis. History of present illness This is a pleasant 34-year-old male with history of hypertension gastroesophageal flux disease and depression referred to me for thrombocytosis. According to the mom his platelet was elevated at 402,000 in 2023. Most recent labs done in September 2024 showed platelet count of 464,000. He has been complaining of tiredness and fatigue but denies any infections and inflammation. Denies any arthritis and myalgias. He quit smoking 3 years ago and only vape now. Denies any bleeding including melena and hematochezia. He denies any previous history of thromboembolic events including stroke and heart attack. 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 Denies any other complaints. Past Medical History Past Medical History: Diagnosis Date Hypertension GERD Depression Surgical History Past Surgical History: Procedure Laterality Date HX APPENDECTOMY Medications Current Outpatient Medications Medication Sig Dispense Refill escitalopram oxalate (LEXAPRO) 20 mg tablet Take 20 mg by mouth daily. losartan (COZAAR) 100 mg tablet Take 100 mg by mouth daily. omeprazole (PriLOSEC) 40 mg Capsule, Delayed Release(E.C.) Take 40 mg by mouth daily. No current facility-administered medications for this visit. Allergies No Known Allergies Immunizations: There is no immunization history on file for this patient. Family History Family History Problem Relation Name Age of Onset Heart Disease Father Heart Disease Mother No Known Problems Brother Cancer - Other Paternal Grandfather blood Social History Social History Tobacco Use Smoking status: Former Current packs/day: 0.00 Average packs/day: 0.5 packs/day for 10.0 years (5.0 ttl pk-yrs) Types: Cigarettes Quit date: 02/03/2022 Years since quittin.0 Smokeless tobacco: Never Substance Use Topics Alcohol use: Not Currently Review of Systems Constitutional: Patient did not mention fever; no night sweats; no anorexia; no weight loss; complain of tiredness and fatigue NEENT: Patient did not mention headache; no change in vision; no change in hearing; no sore throat;no dysphagia Respiratory: Patient did not mention shortness of breath; no pleuritic chest pain; no cough; no hemoptysis Cardiac: Patient did not mention cardiac-like chest pain; no palpitations; no orthopnea; no PND; noDOE GI: Patient did not mention abdominal pain; no nausea; no vomiting; no diarrhea; no hematochezia; no melena : Patient did not mention dysuria; no frequency; no hesitancy; no hematuria RESEARCH PROFESSOR OF BIOSTATISTICS: Musculosketetal: Patient did not mention bone pain; no arthralgia; no joint swelling; no myalgia; Skin: Patient did not mention pruritis; no rash; no petechiae; no ecchymoses Endocrine: Patient did not mention polydipsia; no polyuria; no unusual weight gain Neuro: Patient did not mention headache; no change in vision; no sensory changes; no muscle weakness; no confusion; no seizures Psych: Patient did not mention anxiety; no depression; Physical Exam Vitals: As per nursing note Constitutional: Well developed, well nourished, no acute distress, non-toxic appearance Teeth and gum. No signs of infection or swelling. Eyes: PERRL, conjunctiva normal HEENT: Atraumatic, external ears normal, nose normal, oropharynx moist, no pharyngeal exudates. no sinus tenderness Neck- normal range of motion, no tenderness, supple Respiratory: No respiratory distress, normal breath sounds, no rales, no wheezing Cardiovascular: Normal rate, normal rhythm, no murmurs, no gallops, no rubs GI: Soft, nondistended, normal bowel sounds, nontender, no splenomegaly, no hepatomegaly, no mass, no rebound, no guarding : No costovertebral angle tenderness Musculoskeletal: No edema, no tenderness, no deformities. Back- no tenderness Integument: Well hydrated, no rash, Digits and nails inspection normal Lymphatic: No lymphadenopathy noted Neurologic: Alert & oriented x 3, CN 2-12 normal, normal motor function, normal sensory function, no focal deficits noted Psychiatric: Speech and behavior appropriate ? labs No results found for this or any previous visit (from the past 24 hours). Labs from October 11, 2024 showed WBC 9.3 hemoglobin 14.9 platelet 464,000 neutrophils 68% [id number]% Pathology ? Imaging & Other Studies Performance Status? Assessment / Plan: ? Thrombocytosis. Patient is a pleasant 34-year-old male with history of hypertension, gastroesophageal flux disease and depression referred to me for thrombocytosis. He denies any previous history of thromboembolic events. According to the mom he had high platelet count last year as well. He denies any signs of infection and inflammation. Denies any bleeding and bruising. Denies any history of thromboembolic events. I have discussed the differential diagnosis of thrombocytosis with thepatient. Likely reactive in his age group. Possibility of bone marrow disorder like essential thrombocythemia is rare. I will order the workup that would include CBC with differential, CMP, C-reactive protein, sedimentation rate and iron panel. I have instructed him to take baby aspirin once a day.No need for hydroxyurea. I have answered all the questions to patient and the mother satisfaction. Phone visit in 1 week. Hypertension. He is on losartan. GERD. He is on Prilosec. Depression. Patient is on Lexapro. Thank you very much for allowing me to participate in Néstor Elizabeth's evaluation and management. Please feel free to contact if I can be of any further assistance in your patient???s care requiring hematology or oncology evaluation. Sincerely, ? ? Puneet Martinez M.D. cell TOBACCO COUNSELING He is not a tobacco/nicotine user. Puneet Martinez MD ,02/03/2025 1:54 PM ? Total time spent 60 minutes, two third of the total time spent counseling patient [id number]. CC:? documented in this encounter Plan of Treatment Upcoming Encounters Date Type Department Care Team (Late st Contact Info) Description 02/10/2025 4:30 PM CDT Telephone Check Up [facility] Oncology and Hematology [address] [address] Puneet Martinez MD [address] [facility] [address] [place] [phone] Scheduled Orders Name Type Priority Associated Diagnoses Orde r Schedule CBC WITH DIFFERENTIAL Lab Stat Reactive thrombocytosis Expected: 02/03/2025, Expires: 02/03/2026 COMPREHENSIVE METABOLIC PANEL Lab Stat Reactive thrombocytosis Expected: 02/03/2025, Expires: 02/03/2026 C-REACTIVE PROTEIN Lab Routine Reactive thrombocytosis Expected: 02/03/2025, Expires: 02/03/2026 SEDIMENTATION RATE Lab Routine Reactive thrombocytosis Expected: 02/03/2025, Expires: 02/03/2026 FERRITIN Lab Routine Reactive thrombocytosis Expected: 02/03/2025, Expires: 02/03/2026 IRON, TIBC, AND PERCENT SATURATION Lab Routine Reactive thrombocytosis Expected: 02/03/2025, Expires: 02/03/2026 documented as of this encounter Visit Diagnoses Diagnosis Reactive thrombocytosis- Primary documented in this encounter
[2025-02-03 14:15] LABS: Hematocrit 46.1 % (42.0-52.0); Hemoglobin 15.2 g/dL (14.0-18.0); Immature Granulocyte Percent A 2.0 % (0-0.5); Lymphocytes Absolute Auto 1.91 K/mm3 (0.9-3.2); Mean Corpuscular HGB Conc 33.0 g/dl (32-36); Mean Corpuscular Hemoglobin 28.7 pg (26-34); Mean Corpuscular Volume 87.1 fl (80-100); Nucleated Red Blood Cells Absolute Auto 0.000 K/mm3 (0.0-0.012); Nucleated Red Blood Cells Perc 0.0 % (0.0-0.2); Platelet Count Result 438 k/mm3 (150-375); Red Blood Count 5.29 M/mm3 (4.6-6.20); White Blood Count 10.7 K/mm3 (4.5-10.0)
--- OUTSIDE RECORDS SUMMARY | 2025-02-03 16:00 | XMS_ITS | Clinical Summary ---
Author Organization [facility] [address] Address [address] [place] [address] Phone Care Team Providers Care Successfactors Consultant Name Role Phone Miscellaneous, Not In File [...] 06/21/2022 Assessment & Plan (06/21/2022 9:59 AM SENIOR LINUX UNIX ADMINISTRATOR): Referred to Plastic surgery for excision. Anxiety disorder 06/18/2021 Overview (06/24/2023): Psychiatrist Dr Burgos, Doctor on Demand Assessment & Plan (06/24/2023 9:00 AM SENIOR LINUX UNIX ADMINISTRATOR): Well controlled on escitalopram 20 mg daily and should follow up with his psychiatrist as they direct. Assessment & Plan (06/18/2021 9:12 AM SENIOR LINUX UNIX ADMINISTRATOR): Well controlled on generic Lexapro. IFG (impaired fasting glucose) 07/13/2020 Assessment & Plan (06/24/2023 9:00 AM SENIOR LINUX UNIX ADMINISTRATOR): Check fasting blood sugar this morning and call back for results. Diet exercise discussed. Assessment & Plan (06/21/2022 9:58 AM SENIOR LINUX UNIX ADMINISTRATOR): Check fasting blood sugar next week and call back for results. Assessment & Plan (06/18/2021 9:11 AM SENIOR LINUX UNIX ADMINISTRATOR): Check labs this week and call back [...] 06/15/2020 Assessment & Plan (06/24/2023 8:59 AM SENIOR LINUX UNIX ADMINISTRATOR): Shot each January and COVID booster recommended. Tetanus booster due 2030. Diet exercise discussed. Will see him back in 1 year with labs sooner if needed. He will also have fasting labs done today and call back for results. Assessment & Plan (06/21/2022 9:59 AM SENIOR LINUX UNIX ADMINISTRATOR): Flu shot each January. COVID booster discussed. Tetanus booster every 10 years. Diet exercise discussed. Check fasting labs next week and call back for results. Will see him back in 1 year sooner if needed. Assessment & Plan (06/18/2021 9:11 AM SENIOR LINUX UNIX ADMINISTRATOR): Check fasting labs this week and call back for results. Flu shot each January. Recommended COVID booster shot in September. Tetanus booster every 10 years. Diet exercise discussed. Will see him back in 1 year for physical sooner if needed. Assessment & Plan (06/15/2020 9:02 AM SENIOR LINUX UNIX ADMINISTRATOR): Tetanus booster today. Flu shot recommended but declined and is aware the risks this poses to his health. COVID vaccine recommended when available. Check fasting labs before next visit. Will see him back in 1 month sooner if needed. Essential hypertension 07/21/2015 Overview (06/15/2020): Lisinopril 10mg daily produced side effects but tolerated 5mg twice daily. Assessment & Plan (06/24/2023 8:59 AM SENIOR LINUX UNIX ADMINISTRATOR): Blood pressure well controlled on losartan 100 mg daily. Assessment & Plan (06/21/2022 9:58 AM SENIOR LINUX UNIX ADMINISTRATOR): Blood pressure well controlled on losartan. Assessment & Plan (06/18/2021 9:10 AM SENIOR LINUX UNIX ADMINISTRATOR): Well controlled on the current regimen. Avoidance [...] home. Assessment & Plan (06/15/2020 9:01 AM SENIOR LINUX UNIX ADMINISTRATOR): Check blood pressure at home record and [...] annually. Assessment & Plan (04/04/2017 4:11 PM SENIOR LINUX UNIX ADMINISTRATOR): Blood pressures remain somewhat elevated, at least [...] beta-monique. Assessment & Plan (03/21/2017 5:06 PM SENIOR LINUX UNIX ADMINISTRATOR): Blood pressures were pretty well controlled for [...] positional vertigo as well. He started taking [id number] meclizine which seems to be helping. However [...] a.m. to work his shift at the [employer]. He gets off at 1:30 p.m. He [...] 09/19/2014 Assessment & Plan (06/15/2020 9:01 AM SENIOR LINUX UNIX ADMINISTRATOR): Drink plenty of water and avoid caffeinated beverages salt and animal products. Check calcium level again before next visit. Tobacco dependence syndrome 09/19/2005 Overview (07/26/2016): Tobacco abuse Assessment & Plan (07/03/2017 2:44 PM CDT): He is still smoking. I encouraged him again to quit. Assessment & Plan (04/04/2017 4:09 PM SENIOR LINUX UNIX ADMINISTRATOR): He is still smoking. He should try to quit. This would probably improve his blood pressure and his overall health status. Resolved Problems Problem Noted Date Diagnosed Date Resolved Date Benign paroxysmal positional vertigo due to bilateral vestibular disorder 03/10/2017 07/03/2017 Other headache syndrome 03/07/201706/19 Assessment & Plan (03/21/2017 5:09 PM SENIOR LINUX UNIX ADMINISTRATOR): About the same time that his blood [...] not had any response to ibuprofen taken [id number]. We will give him some tramadol to [...] on file Legal Sex Male 3:33 AM SENIOR LINUX UNIX ADMINISTRATOR Gender Identity Not on file Sexual Orientation Not on file Obstetrics History Last Filed Vital Signs Vital Sign Reading Time Taken Comments Blood Pressure 124/88 05/03/2024 12:42 PM SENIOR LINUX UNIX ADMINISTRATOR Pulse 89 05/03/2024 12:42 PM SENIOR LINUX UNIX ADMINISTRATOR Temperature 36.3 C (97.3 F) 05/03/2024 10:15 AM SENIOR LINUX UNIX ADMINISTRATOR Respiratory Rate 16 05/03/2024 12:42 PM SENIOR LINUX UNIX ADMINISTRATOR Oxygen Saturation 95% 05/03/2024 12:42 PM SENIOR LINUX UNIX ADMINISTRATOR Inhaled Oxygen Concentration - - Weight 77.1 kg (170 lb) 05/03/2024 10:17 AM SENIOR LINUX UNIX ADMINISTRATOR Height 169.5 cm (5' 6.73) 06/24/2023 8:18 AM CS T Body Mass Index 26.84 06/24/2023 8:18 AM SENIOR LINUX UNIX ADMINISTRATOR Plan of Treatment Health Maintenance Due Date Last Done Comments Hepatitis C Screening 1988 Varicella Vaccines (1 of 2 - 13+ 2-dose series) 2001 HPV Vaccines (1 - 3-dose SCDM series) 2015 Depression Screening 06/23/2024 06/24/2023, 06/21/2022, 06/18/2021, Additional history exists Regular Well Visit/Exam 18-64 06/23/2024 06/24/2023, 06/21/2022, 06/18/2021, Additional history exists Covid-19 Vaccine ( - season) 2024 09/24/2020, 09/03/2020 Influenza Vaccine (#1) 2024 01/07/2018 DTaP/Tdap/Td Vaccine (6 - Tdap) 06/15/2030 06/15/2020, 07/29/2002, 09/07/1992, Additional history exists Postponed from 06/16/2020 (Provider's clinical decision) Hepatitis B Screening Completed 07/11/1998 , 02/07/1998, 01/03/1998 Pneumococcal vaccine <65 Aged Out No longer eligible based on patient's age to complete this topic Insurance [facility] [employer] OOS [employer] OOS [facility] HMO/PPO Address: [address] [address] [place] [address] [employer] GENERIC Care Teams Successfactors Consultant Relationship Specialty Start Date End Date Miscellaneous, Not In File PCP - General 05/03/24
--- OUTSIDE RECORDS SUMMARY | 2025-02-03 16:00 | XMS_ITS | Clinical Summary ---
Author Organization [facility] KITTY HAWK Address [address] [phone] Phone Care Team Providers Care Grades 1 6 Tutor Name Role Phone Provider, Unknown Primary Care [...] Active Active Problems No known active problems Encounters Date Type Department Care Team Description 01/25/2025 9:10 AM CDT Urgent Care Visit [facility] [address] [place] [phone] Juan Brown PAC Sore throat (Primary Dx); Viral illness Discharge Disposition: Discharged to home or Selfcare 01/25/2025 Travel from Last 3 Months Immunizations Immunization Administration Dates Next Due DTP [...] Sign Reading Time Taken Comments Blood Pressure 112/68 01/25/2025 9:10 AM CDT Pulse 101 01/25/2025 9:10 AM CDT Temperature 36.6 C (97.8 F) 01/25/2025 9:10 AM CDT Respiratory Rate 20 01/25/2025 9:10 AM CDT Oxygen Saturation 98% 01/25/2025 9:10 AM CDT Inhaled Oxygen Concentration - - Weight - - Height - - Body Mass Index - - Plan of Treatment Health Maintenance Due Date Last Done Comments Hepatitis C Virus (HCV) Screening 1988 Human Papillomavirus (HPV) Immunization (1 - 3-dose SCDM series) 2015 DTaP/Tdap/Td Immunization (6 - Tdap) 06/16/2020 06/15/2020, 07/29/2002, 09/07/1992, Additional history exists Influenza Immunization (#1) 2024 01/07/2018 SARS-COV-2 Immunization (3 - season) 2024 09/24/2020, 09/03/2020 Respiratory Syncytial Virus (RSV) Immunization (Adult) (1 [...] on patient's age to complete this topic Procedures Procedure Name Priority Date/Time Associated Diagnosis Comments POC GROUP A STREP BY MOLECULAR Routine 01/25/2025 9:16 AM CDT Sore throat from Last 3 Months Results * POC GROUP A STREP BY MOLECULAR (01/25/2025 9:16 AM CDT) STREP A DNA Negative Negative, Invalid PROCEDURE CONTROL Valid 01/25/2025 9:16 AM CDT Juan Brown [facility] POINT OF CARE TESTING (MANUAL ) Final Result from Last 3 Months Insurance MEDICARE [facility] [place] [address] Care Teams Grades 1 6 Tutor Relationship Specialty Start Date End Date Provider, Unknown UNKNOWN PCP - General 12/23/19
--- OUTSIDE RECORDS SUMMARY | 2025-02-03 16:00 | XMS_ITS | Clinical Summary ---
Author Organization [facility] Agustin morales Yogesh Address [address] [place] [address] Care Team Providers Care Supervisor Capacitor Processing Name Role Phone Unavailable Primary Care Provider Unavailabl e Allergies No known active allergies Medications escitalopram oxalate (LEXAPRO) 20 mg tablet Take 20 mg by mouth daily. 07/30/2022 Active losartan (COZAAR) 100 mg tablet Take 100 mg by mouth daily. 05/22/2023 Active omeprazole (PriLOSEC) 40 mg Capsule, Delayed Release(E.C.) Take 40 mg by mouth daily. 02/13/2024 Active Active Problems No known active problems Encounters Date Type Department Care Team Description 02/03/2025 1:30 PM CDT Office Visit [facility] Oncology and Hematology - [place] [address] [address] Puneet Martinez MD Reactive thrombocytosis (Primary Dx) from Last 3 Months Family History Medical History Relation Name Comments No Known Problems Brother Heart Disease Father Heart Disease Mother Cancer - Other Paternal Grandfather blood Relation Name Status Comments Brother Alive Father Alive Mother Alive Paternal Grandfather Alive Social History Tobacco Use Types Packs/Day Years [...] Mass Index 28.98 02/03/2025 1:29 PM CDT Plan of Treatment Upcoming Encounters Date Type Department Care Team (Late st Contact Info) Description 02/10/2025 4:30 PM CDT Telephone Check Up [facility] Oncology and Hematology - [place] [address] [facility] [address] [place] [address] Puneet Martinez MD [address] [facility] [address] [place] [address] Health Maintenance Due Date Last Done Comments HPV VACCINES (1 - 3-dose SCD M series) 2015 DTAP/TDAP/TD VACCINES (6 - Tdap) 06/16/2020 06/15/2020, 09/07/1992, 10/30/1989, Additional history exists Preventative Visit- Commercial 04/21/2024 0 06/24/2023, 06/21/2022, 06/18/2021, Additional history exists INFLUENZA VACCINE (#1) 2024 01/07/2018 HEPATITIS B VACCINES Completed 07/11/1998, 02/07/1998, 01/03/1998 Insurance
[2025-02-03 17:49] LABS: Alanine Aminotransferase 45 U/L (6-50); Albumin Level 4.5 g/dL (3.5-5.1); Alkaline Phosphatase 133 U/L (38-126); Anion Gap 11 mmol/L (4-12); Aspartate Amino Transferase 47 U/L (17-59); Bilirubin,Total 0.6 mg/dL (0.2-1.3); Blood Urea Nitrogen 15 mg/dL (9-20); CRP 1.6 mg/dL (<1.0); Calcium 9.6 mg/dL (8.4-10.2); Carbon Dioxide 30 mmol/L (22-30); Chloride 99 mmol/L (98-107); Estimated Glomerular Filt Rate > 60; Glucose 84 mg/dL (65-110); Potassium 4.1 mmol/L (3.4-5.0); Sodium 140 mmol/L (137-145); Total Protein 8.8 g/dL (6.3-8.2)
[2025-02-03 19:15] LABS: Iron 86 ug/dL (49-181)
[2025-02-03 20:04] LABS: Ferritin 76.60 ng/mL (17.9-464)
[2025-02-03 20:07] LABS: Percent Iron Saturation 27 % (20-50)
== END 2025-02-03 13:57 | disposition home or self-care (01) ==
LOC: ANHLAB 13:56
PROVIDERS: PCP Nurse Practitioner Adult Health; Visit Provider Internal Medicine Hematology & Oncology
DX: D75.838 Other thrombocytosis (principal)
CPT/HCPCS: 36415; 80053; 82728; 83540; 83550; 85025; 85652; 86140